=== PATIENT | female | born 1975 | race Caucasian/White ===

== ENCOUNTER 2017-08-15 08:17 | Emergency (ER) | payer MEDICARE, MEDICAID ==
[~2017-08-15] VITALS: Ht 167.6 cm; Wt 115.0 kg
[~2017-08-15 08:17] MED LIST: ALBU8.5H8 IH; CYCL-1 PO; DIPH-423 PO; GUAI120015 PO; HYDR-569 PO; PRED10TA PO; PROC25SU30 PO
[2017-08-15] MEDS ORDERED: TAM75C PO (09:06)
[2017-08-15] MEDS ORDERED: GUAI120L55 PO (09:11)
[2017-08-15 09:20] VITALS: BP 137/100
== END 2017-08-15 09:21 | disposition home or self-care (01) ==
LOC: ER 08:18
DX: J11.1 Influenza due to unidentified influenza virus with other respiratory manifestations (principal); I10 Essential (primary) hypertension; G89.29 Other chronic pain; Z98.51 Tubal ligation status; Z88.1 Allergy status to other antibiotic agents; Z79.899 Other long term (current) drug therapy; Z90.49 Acquired absence of other specified parts of digestive tract
CPT/HCPCS: 99283

== ENCOUNTER 2023-02-04 20:30 | Emergency (ER) | payer BC, MEDICAID ==
[~2023-02-04] VITALS: Ht 167.6 cm; Wt 100.0 kg
[~2023-02-04 20:30] MED LIST changes: +ALBU8.5H17 IH; -ALBU8.5H8 IH; +GUAI120L55 PO; +HYDR-4383 PO; -HYDR-569 PO
[2023-02-04 20:35] VITALS: BP 172/97
[2023-02-04] MEDS ORDERED: IBUP-1984 PO (21:23)
== END 2023-02-04 21:45 | disposition home or self-care (01) ==
LOC: ER 20:30
DX: S83.91XA Sprain of unspecified site of right knee, initial encounter (principal); I10 Essential (primary) hypertension; Z88.1 Allergy status to other antibiotic agents; Z88.5 Allergy status to narcotic agent; Z79.899 Other long term (current) drug therapy; Z90.49 Acquired absence of other specified parts of digestive tract; Z98.51 Tubal ligation status; X58.XXXA Exposure to other specified factors, initial encounter; Y93.89 Activity, other specified; Y92.89 Other specified places as the place of occurrence of the external cause; Y99.8 Other external cause status
CPT/HCPCS: 73564; 99283

== ENCOUNTER 2023-09-09 12:25 | Emergency (ER) | payer BC, MEDICAID ==
[~2023-09-09] VITALS: Ht 168.9 cm; Wt 103.5 kg
[2023-09-09 12:46] VITALS: BP 142/97; PULSE 89; RESP 16; TEMP 98.6; O2SAT 98
[2023-09-09 13:29] LABS: STREP A SCREEN NEGATIVE (Neg)
[2023-09-09] MEDS ORDERED: PRED20TA PO (14:05)
[2023-09-09] MEDS ORDERED: AMOX-117 PO (14:05)
[2023-09-09] MEDS ORDERED: AZIT200S47 PO (16:06)
== END 2023-09-09 14:59 | disposition home or self-care (01) ==
LOC: ER 12:25
DX: J03.90 Acute tonsillitis, unspecified (principal); I10 Essential (primary) hypertension; Z88.1 Allergy status to other antibiotic agents; Z88.5 Allergy status to narcotic agent; Z79.2 Long term (current) use of antibiotics; Z79.899 Other long term (current) drug therapy; Z90.49 Acquired absence of other specified parts of digestive tract; Z98.51 Tubal ligation status
CPT/HCPCS: 87081; 87880; 99283